=== PATIENT | female | born 1960 ===

== ENCOUNTER → 2017-01-31 | Outpatient (CLI) | payer OTHER ==
[~2017-01-31] MED LIST: LEVO100T PO; LEVO1TAB33 PO; MELO15TA4 PO; TRAM-10 PO; VITACAP26 PO
== END | disposition home or self-care (01) ==
LOC: C.LABMFLN 11:32
PROVIDERS: ATTEND Family Medicine
DX: E03.9 Hypothyroidism, unspecified (principal)